=== PATIENT | male | born 1990 ===

== ENCOUNTER 2024-03-28 12:11 | Inpatient (IN) | payer SELFPAY ==
[2024-03-28 13:23] LABS: Anisocytosis Slight; Basophils % (A) 0 %; Eosinophils # (A) 0.1 k/uL (0-0.7); Eosinophils % (A) 1 %; HCT 29.3 % (39.0-53.0); HGB 9.5 gm/dL (13.0-17.5); Lymphocytes # (A) 0.5 k/uL (1.0-4.8); Lymphocytes % (A) 5 %; MCH 26.5 pg (25.0-35.0); MCHC 32.2 g/dL (31.0-37.0); MCV 82.1 fL (80.0-100.0); Mean Platelet Volume 9.4; Microcytosis Slight; Monocytes # (A) 0.9 k/uL (0-1.0); Monocytes % (A) 10 %; Neutrophils % (A) 82 %; Platelet Count 229 k/uL (150-450); RBC 3.57 m/uL (4.30-5.90); RDW 18.3 % (11.5-15.5); WBC 9.7 k/uL (3.8-10.6)
[2024-03-28 13:28] LABS: Glucose,Whole Blood 113 mg/dL (70-110)
--- NOTE | 2024-03-28 13:34 | ED ---
Altered Mental Status HPI - General Chief Complaint: Altered Mental Status Stated Complaint: Detox Time Seen by Provider: 03/28/24 12:40 Source: EMS, RN notes reviewed, old records reviewed Mode of arrival: EMS - History of Present Illness Initial Comments: This is a 34-year-old male to the ER today. He presents today for evaluation regards to altered mental status patient is a poor historian secondary to both clinical condition and language barrier, even with dewaterer operator at bedside here during history of present illness patient is unable to communicate effectively. Patient is brought in from incarceration with and acting appropriate not acting appropriately some noted diaphoresis MD Complaint: altered mental status, confusion, weakness -: days(s) Severity: moderate Consistency of Symptoms: getting worse Context: alcohol abuse, drug abuse Associated Symptoms: denies other symptoms Treatments Prior to Arrival: other pre-hospital medication (0) - Related Data Previous Rx's Medication Instructions Recorded Folic Acid 1 mg PO DAILY #30 tab 04/01/24 Lactulose [Cephulac] 20 gm PO TID #1000 ml 04/01/24 Multivitamins, Thera [Multivitamin 1 each PO DAILY #30 tab 04/01/24 (formulary)] Thiamine [Vitamin B-1] 100 mg PO DAILY #30 tab 04/01/24 Allergies Allergy/AdvReac Type Severity Reaction Status Date / Time No Known Allergies Allergy Verified 03/28/24 15:56 Review of Systems ROS Statement: Those systems with pertinent positive or pertinent negative responses have been documented in the HPI. ROS Other: All systems not noted in ROS Statement are negative. Past Medical History Past Medical History: No Reported History History of Any Multi-Drug Resistant Organisms: Unobtainable Past Surgical History: No Surgical Hx Reported Past Psychological History: Unable to Obtain Smoking Status: Unknown if ever smoked Past Alcohol Use History: Abuse Past Drug Use History: Methamphetamine, Opiates General Exam Limitations: altered mental status, physical limitation General appearance: alert, in no apparent distress, anxious, lethargic Head exam: Present: atraumatic, normocephalic, normal inspection Eye exam: Present: normal appearance, PERRL, EOMI. Absent: scleral icterus, conjunctival injection, periorbital swelling ENT exam: Present: normal exam, mucous membranes moist Neck exam: Present: normal inspection. Absent: tenderness, meningismus, lymphadenopathy Respiratory exam: Present: normal lung sounds bilaterally. Absent: respiratory distress, wheezes, rales, rhonchi, stridor Cardiovascular Exam: Present: regular rate, normal rhythm, normal heart sounds. Absent: systolic murmur, diastolic murmur, rubs, gallop, clicks GI/Abdominal exam: Present: soft, normal bowel sounds. Absent: distended, tenderness, guarding, rebound, rigid Extremities exam: Present: normal inspection, full ROM, normal capillary refill. Absent: tenderness, pedal edema, joint swelling, calf tenderness Back exam: Present: normal inspection Neurological exam: Present: alert, oriented X3, CN II-XII intact Psychiatric exam: Present: normal affect, normal mood Skin exam: Present: warm, dry, intact, normal color. Absent: rash Course Vital Signs 03/28/24 03/28/24 03/28/24 12:15 13:31 16:07 Temperature 98.3 F Pulse Rate 93 74 78 Respiratory 16 16 18 Rate Blood Pressure 127/73 125/83 134/86 O2 Sat by Pulse 98 98 99 Oximetry 03/28/24 03/28/24 03/29/24 18:05 20:45 01:43 Temperature Pulse Rate 73 58 L 70 Respiratory 16 17 19 Rate Blood Pressure 110/70 111/76 122/65 O2 Sat by Pulse 98 100 99 Oximetry 03/29/24 03/29/24 03/29/24 10:00 11:59 14:00 Temperature Pulse Rate 76 62 66 Respiratory 18 18 18 Rate Blood Pressure 126/70 130/73 128/70 O2 Sat by Pulse 99 100 99 Oximetry 03/29/24 03/29/24 03/29/24 16:00 18:51 23:35 Temperature Pulse Rate 68 68 66 Respiratory 18 18 18 Rate Blood Pressure 134/70 130/76 126/75 O2 Sat by Pulse 99 99 99 Oximetry 03/30/24 03:50 Temperature Pulse Rate 86 Respiratory 18 Rate Blood Pressure 137/87 O2 Sat by Pulse 100 Oximetry - Reevaluation(s) Reevaluation #1: 03/28/24 14:16 Medical records reviewed Reevaluation #2: 03/28/24 14:16 Patient symptoms unchanged Reevaluation #3: 03/28/24 14:16 Patient informed of results and questions answered Reevaluation #4: Was pt. sent in by a medical professional or institution (, PA, CLUTCH INSPECTOR, urgent care, hospital, or correction...) When possible be specific @ -no Did you speak to anyone other than the patient for history (EMS, parent, family, police, friend...)? What history was obtained from this source @ -no Did you review nursing and triage notes (agree or disagree)? Why? @ -agree Are old charts reviewed (outside hosp., previous admission, EMS record, old EKG, old radiological studies, urgent care reports/EKG's, correction records)? Report findings @ -yes Differential Diagnosis (chest pain, altered mental status, abdominal pain women, abdominal pain men, vaginal bleeding, weakness, fever, dyspnea, syncope, headache, dizziness, GI bleed, back pain, seizure, CVA, palpatations, mental health, musculoskeletal)? @ -prior EKG interpreted by me (3pts min.). @ -yes X-rays interpreted by me (1pt min.). @ -no CT interpreted by me (1pt min.). @ -no U/S interpreted by me (1pt. min.). @ -no What testing was considered but not performed or refused? (CT, X-rays, U/S, labs)? Why? @ -none What meds were considered but not given or refused? Why? @ -none Did you discuss the management of the patient with other professionals (professionals i.e. , PA, CLUTCH INSPECTOR, lab, RT, psych nurse, social work nurse, horse riding coach or instructor, teacher, engineering officer, rn field case manager)? Give summary @ -no Was smoking cessation discussed for >3mins.? @ -no Were there social determinants of health that impacted care today? How? (Homelessness, low income, unemployed, alcoholism, drug addiction, transportation, low edu. Level, literacy, decrease access to med. care, half-way, rehab)? @ -none Was there de-escalation of care discussed even if they declined (Discuss DNR or withdrawal of care, Hospice)? DNR status @ -no What co-morbidities impacted this encounter? (DM, HTN, Smoking, COPD, CAD, Cancer, CVA, ARF, Chemo, Hep., AIDS, mental health diagnosis, sleep apnea, morbid obesity)? @ -none Was patient admitted / discharged? Hospital course, mention meds given and route, prescriptions, significant lab abnormalities, going to OR and other pertinent info. @ - 34 male with persistent altered mental status, continues to be unable to participate or does not participate in evaluation, patient will be admitted for psychiatry as well as possible neurological evaluation in regards to clinical condition Admitted Was critical care preformed (if so, how long)? @ -no Undiagnosed new problem with uncertain prognosis? @ -no Drug Therapy requiring intensive monitoring for toxicity (Heparin, Nitro, Insulin, Cardizem)? @ -no Were any procedures done? @ -no Diagnosis/symptom? @ -depression suicidal altered mental state Acute, or Chronic, or Acute on Chronic? @ -Acute Uncomplicated (without systemic symptoms) or Complicated (systemic symptoms)? @ -Complicated Side effects of treatment? @ -no Exacerbation, Progression, or Severe Exacerbation? @ -exacerbation Poses a threat to life or bodily function? How? (Chest pain, [place], [place], pneumonia, PE, COPD, DKA, ARF, appy, cholecystitis, CVA, Diverticulitis, Homicidal, Suicidal, threat to staff... and all critical care pts) @ -yes suicidal and altered mental status Reevaluation #5: Differential Altered Mental Status: Hypoglycemia, DKA, hypercapnia, ETOH, overdose, CO poisoning, trauma, myxedema coma, HTN encephalopathy, infection, encephalitis, psychosis, intercranial hemorrhage, hepatic encephalopathy, meningitis, CVA, this is not meant to be an all-inclusive list - Consultations Consultation #1: Spoke with admitting physicians who agreed to admit this patient Medical Decision Making - Medical Decision Making 34 male with persistent altered mental status, continues to be unable to participate or does not participate in evaluation, patient will be admitted for psychiatry as well as possible neurological evaluation in regards to clinical condition - Lab Data Result diagrams: 04/01/24 08:52 04/01/24 08:52 Lab Results 03/28/24 03/28/24 03/28/24 Range/Units 13:14 13:14 13:14 WBC 9.7 (3.8-10.6) k/uL RBC 3.57 L (4.30-5.90) m/uL Hgb 9.5 L (13.0-17.5) gm/dL Hct 29.3 L (39.0-53.0) % MCV 82.1 (80.0-100.0) fL MCH 26.5 (25.0-35.0) pg MCHC 32.2 (31.0-37.0) g/dL RDW 18.3 H (11.5-15.5) % Plt Count 229 (150-450) k/uL MPV 9.4 Neutrophils % 82 % Lymphocytes % 5 % Monocytes % 10 % Eosinophils % 1 % Basophils % 0 % Neutrophils # 8.0 H (1.3-7.7) k/uL Lymphocytes # 0.5 L (1.0-4.8) k/uL Monocytes # 0.9 (0-1.0) k/uL Eosinophils # 0.1 (0-0.7) k/uL Basophils # 0.0 (0-0.2) k/uL Anisocytosis Slight Microcytosis Slight PT 12.7 H (10.0-12.5) sec INR 1.2 H (<1.2) APTT 23.8 (22.0-30.0) sec POC Glucose (mg/dL) (70-110) mg/dL POC Glu Radiology Physician ID Phosphorus (2.5-4.5) mg/dL Magnesium (1.6-2.3) mg/dL Ammonia (<30) umol/L Troponin I (0.000-0.034) ng/mL Lipase (23-300) U/L Urine Opiates Screen Not Detected (NotDetected) Ur Oxycodone Screen Not Detected (NotDetected) Urine Methadone Screen Not Detected (NotDetected) Ur Barbiturates Screen Not Detected (NotDetected) U Tricyclic Antidepress Not Detected (NotDetected) Ur Phencyclidine Scrn Not Detected (NotDetected) Ur Amphetamines Screen Not Detected (NotDetected) U Methamphetamines Scrn Not Detected (NotDetected) U Benzodiazepines Scrn Not Detected (NotDetected) Urine Cocaine Screen Not Detected (NotDetected) U Marijuana (THC) Screen Detected H (NotDetected) Serum Alcohol mg/dL 03/28/24 03/28/24 03/28/24 Range/Units 13:14 13:14 13:14 WBC (3.8-10.6) k/uL RBC (4.30-5.90) m/uL Hgb (13.0-17.5) gm/dL Hct (39.0-53.0) % MCV (80.0-100.0) fL MCH (25.0-35.0) pg MCHC (31.0-37.0) g/dL RDW (11.5-15.5) % Plt Count (150-450) k/uL MPV Neutrophils % % Lymphocytes % % Monocytes % % Eosinophils % % Basophils % % Neutrophils # (1.3-7.7) k/uL Lymphocytes # (1.0-4.8) k/uL Monocytes # (0-1.0) k/uL Eosinophils # (0-0.7) k/uL Basophils # (0-0.2) k/uL Anisocytosis Microcytosis PT (10.0-12.5) sec INR (<1.2) APTT (22.0-30.0) sec POC Glucose (mg/dL) (70-110) mg/dL POC Glu Radiology Physician ID Phosphorus 3.8 (2.5-4.5) mg/dL Magnesium 2.1 (1.6-2.3) mg/dL Ammonia 29 (<30) umol/L Troponin I 0.016 (0.000-0.034) ng/mL Lipase 135 (23-300) U/L Urine Opiates Screen (NotDetected) Ur Oxycodone Screen (NotDetected) Urine Methadone Screen (NotDetected) Ur Barbiturates Screen (NotDetected) U Tricyclic Antidepress (NotDetected) Ur Phencyclidine Scrn (NotDetected) Ur Amphetamines Screen (NotDetected) U Methamphetamines Scrn (NotDetected) U Benzodiazepines Scrn (NotDetected) Urine Cocaine Screen (NotDetected) U Marijuana (THC) Screen (NotDetected) Serum Alcohol <10 mg/dL 03/28/24 Range/Units 13:27 WBC (3.8-10.6) k/uL RBC (4.30-5.90) m/uL Hgb (13.0-17.5) gm/dL Hct (39.0-53.0) % MCV (80.0-100.0) fL MCH (25.0-35.0) pg MCHC (31.0-37.0) g/dL RDW (11.5-15.5) % Plt Count (150-450) k/uL MPV Neutrophils % % Lymphocytes % % Monocytes % % Eosinophils % % Basophils % % Neutrophils # (1.3-7.7) k/uL Lymphocytes # (1.0-4.8) k/uL Monocytes # (0-1.0) k/uL Eosinophils # (0-0.7) k/uL Basophils # (0-0.2) k/uL Anisocytosis Microcytosis PT (10.0-12.5) sec INR (<1.2) APTT (22.0-30.0) sec POC Glucose (mg/dL) 113 H (70-110) mg/dL POC Glu Radiology Physician ID Ronit Batres Phosphorus (2.5-4.5) mg/dL Magnesium (1.6-2.3) mg/dL Ammonia (<30) umol/L Troponin I (0.000-0.034) ng/mL Lipase (23-300) U/L Urine Opiates Screen (NotDetected) Ur Oxycodone Screen (NotDetected) Urine Methadone Screen (NotDetected) Ur Barbiturates Screen (NotDetected) U Tricyclic Antidepress (NotDetected) Ur Phencyclidine Scrn (NotDetected) Ur Amphetamines Screen (NotDetected) U Methamphetamines Scrn (NotDetected) U Benzodiazepines Scrn (NotDetected) Urine Cocaine Screen (NotDetected) U Marijuana (THC) Screen (NotDetected) Serum Alcohol mg/dL - EKG Data -: EKG Interpreted by Me (EKG is sinus 65 ND 172 QRS 98 QTc 435) Disposition Clinical Impression: Altered mental status, Delirium due to general medical condition Disposition: ADMITTED IP TO THIS HOSP Condition: Fair Is patient prescribed a controlled substance at d/c from ED?: No Time of Disposition: 16:30
[2024-03-28 13:35] LABS: Alcohol <10 mg/dL; Lipase 135 U/L (23-300); Magnesium 2.1 mg/dL (1.6-2.3); Phosphorus 3.8 mg/dL (2.5-4.5)
[2024-03-28 13:37] LABS: INR 1.2 (<1.2); Partial Thromboplastin Time 23.8 sec (22.0-30.0); Prothrombin Time 12.7 sec (10.0-12.5)
[2024-03-28 15:23] LABS: Amphetamine Screen,Urine Not Detected (NotDetected); Barbiturate Screen,Urine Not Detected (NotDetected); Benzodiazepines Screen,Urine Not Detected (NotDetected); Cocaine Screen,Urine Not Detected (NotDetected); Methadone Screen, Urine Not Detected (NotDetected); Opiate Screen,Urine Not Detected (NotDetected); Oxycodone Screen, Urine Not Detected (NotDetected); Phencyclidine Screen,Urine Not Detected (NotDetected); Tricyclic Antidepressant,Urine Not Detected (NotDetected); Urn Cannabinoid Scrn Detected (NotDetected)
[2024-03-28] MEDS ORDERED: NALOXONE 0.4 MG/ML 1 ML VIAL IV PRN (16:33)
[2024-03-28] MEDS ORDERED: ONDANSETRON 4 MG/2 ML VIAL IVP PRN (16:33)
[2024-03-28] MEDS: SODIUM CHLORIDE 0.9% 1,000 ML IV SCH (18:04)
--- NOTE | 2024-03-28 22:28 | CT ---
EXAMINATION TYPE: CT brain wo con DATE OF EXAM: 03/28/2024 COMPARISON: None INDICATION: ams DLP: 1095.4 mGycm, Automated exposure control for dose reduction was used. CONTRAST: None CT of the brain is performed utilizing 3 mm thick sections through the posterior fossa and 3 mm thick sections through the remaining calvarium. Study is performed within 24 hours of arrival to the hosp ital. No abnormal hyperdensity is present to suggest an acute intracranial hemorrhage. No mass lesion is evident. No acute infarcts are evident. Ventricles and sulci are appropriate for the patient age. Paranasal sinuses and mastoid air cells within the [id number] are clear. IMPRESSION: 1. No acute intracranial process. Follow-up MRI can be performed as clinically indicated
--- NOTE | 2024-03-29 01:39 | P.HPIM ---
History of Present Illness H&P Date: 03/28/24 Chief Complaint: Altered mental status 34-year-old male no significant past medical history Private Household Worker service was utilized to communicate with patient, facilities flight check pilot name was Karlo code #[id number] [place] that [place] kids with st ones resulted in superficial ulcers in his feet legs elbow, then he adds that he remained in his wet shoes for 3 days before he came in here and that resulted in some pain in his left foot. When asked to elaborate more he added that he was working in [employer] but over the past couple days he was feeling dizzy and having trouble with walking due to pain in his feet. Eventually a stranger and found him in an unknown condition and brought him to the hospital for evaluation Patient otherwise denies any headache changes in vision chest pain trouble breathing coughing abdominal pain nausea vomiting diarrhea or constipation denies any urinary changes. When asked he does admit to history of GI bleeding described as fresh blood occasionally no associated pain. No further history is obtainable from this patient at this time Emergency department note documented that patient was brought in due to altered mental status again they noted that patient has language barrier and was not able to communicate effectively even with facilities flight check pilot service ED notes that also patient was brought in from incarceration, when I asked the patient he failed to elaborate over this fact and basically denied Patient denies tobacco smoking illicit drugs or heavy alcohol however his urine drug screen tested positive for marijuana CT of the brain no acute intracranial pathology review of systems Pertinent positives as noted in HPI. All other systems were reviewed and are negative on exam Constitutional: No acute distress, language barrier utilized facilities flight check pilot service Eyes: Anicteric sclerae, moist conjunctiva, Pupils equal round reactive to light ENMT: NC/AT Neck: Supple, no masses, or JVD No carotid bruits No thyromegaly Lungs: Clear to auscultation Clear to percussion Normal respiratory effort, no accessory muscle use Cardiovascular: Heart regular in rate and rhythm, No murmurs, gallops, or rubs No peripheral edema Abdominal: Soft Nontender, no guarding, rebound or rigidity Abdomen moving with respiration Normoactive bowel sounds Skin: Multiple superficial dried ulcers with scabbing over his foot, leg, knee, elbow Extremities: No digital cyanosis No clubbing Pedal pulses intact and symmetrical Radial pulses intact and symmetrical No calf tenderness Psychiatric: Alert and oriented to person, place and time Neuro Muscles Strength 5/5 in all 4 extremities Sensation to light touch grossly present throughout Cranial nerves II-XII grossly intact Past Medical History Past Medical History: No Reported History History of Any Multi-Drug Resistant Organisms: Unobtainable Past Surgical History: No Surgical Hx Reported Past Psychological History: Unable to Obtain Smoking Status: Unknown if ever smoked Past Alcohol Use History: Abuse Past Drug Use History: Methamphetamine, Opiates Medications and Allergies Home Medications Medication Instructions Recorded Confirmed Type No Known Home Medications 03/28/24 03/28/24 History Allergies Allergy/AdvReac Type Severity Reaction Status Date / Time No Known Allergies Allergy Verified 03/28/24 15:56 Physical Exam Vitals: Vital Signs Temp Pulse Resp BP Pulse Ox 03/28/24 20:45 58 L 17 111/76 100 03/28/24 18:05 73 16 110/70 98 03/28/24 16:07 78 18 134/86 99 03/28/24 13:31 74 16 125/83 98 03/28/24 12:15 98.3 F 93 16 127/73 98 Intake and Output 03/28/24 03/28/24 03/28/24 06:59 14:59 22:59 Other: Weight 54.431 kg Results CBC & Chem 7: 03/28/24 13:14 Labs: Abnormal Lab Results - Last 24 Hours (Table) 03/28/24 03/28/24 03/28/24 Range/Units 13:14 13:14 13:14 RBC 3.57 L (4.30-5.90) m/uL Hgb 9.5 L (13.0-17.5) gm/dL Hct 29.3 L (39.0-53.0) % RDW 18.3 H (11.5-15.5) % Neutrophils # 8.0 H (1.3-7.7) k/uL Lymphocytes # 0.5 L (1.0-4.8) k/uL PT 12.7 H (10.0-12.5) sec INR 1.2 H (<1.2) POC Glucose (mg/dL) (70-110) mg/dL U Marijuana (THC) Screen Detected H (NotDetected) 03/28/24 Range/Units 13:27 RBC (4.30-5.90) m/uL Hgb (13.0-17.5) gm/dL Hct (39.0-53.0) % RDW (11.5-15.5) % Neutrophils # (1.3-7.7) k/uL Lymphocytes # (1.0-4.8) k/uL PT (10.0-12.5) sec INR (<1.2) POC Glucose (mg/dL) 113 H (70-110) mg/dL U Marijuana (THC) Screen (NotDetected) Assessment and Plan Assessment: 34-year-old male no significant past medical history language barrier facilities flight check pilot service utilized patient does not have any specific complaints he was brought in due to altered mental status and generalized weakness I discussed case with ED doctor and accepted the admission for altered mental status for ne urologic monitoring and evaluation with anticipated length of stay less than 2 midnights Acute metabolic encephalopathy Suspected secondary to dehydration Check stat BMP Check stat lactic acid Urine looks dark at bedside CT of the brain no acute intracranial pathology Neurochecks every 2 hours Blood work overall unremarkable showing magnesium of 2.1 white count of 9.7 IV fluid hydration normal saline 1 L bolus followed by 130 cc/h Monitor urine output Anemia Hemoglobin 9.5 Patient admits to history of GI bleeding Check FOBT, if positive consider GI consultation Full code DVT prophylaxis mechanical GI prophylaxis Protonix 40 mg p.o. daily
[2024-03-29 02:03] LABS: African American GFR (CKD) >90 (>60 ml/min/1.73 sqM); Anion Gap 7 mmol/L; Blood Urea Nitrogen 19 mg/dL (9-20); Calcium 8.6 mg/dL (8.4-10.2); Carbon Dioxide 24 mmol/L (22-30); Chloride 102 mmol/L (98-107); Glucose 111 mg/dL (74-99); Non-African American GFR(CKD) >90 (>60 ml/min/1.73 sqM); Sodium 133 mmol/L (137-145)
[2024-03-29 02:10] LABS: Creatine Kinase 1390 U/L (55-170)
[2024-03-29 10:01] LABS: Anisocytosis Slight; Basophils % (A) 0 %; Eosinophils # (A) 0.1 k/uL (0-0.7); Eosinophils % (A) 1 %; HCT 28.3 % (39.0-53.0); HGB 8.5 gm/dL (13.0-17.5); Lymphocytes # (A) 0.7 k/uL (1.0-4.8); Lymphocytes % (A) 9 %; MCH 25.2 pg (25.0-35.0); MCV 84.2 fL (80.0-100.0); Monocytes # (A) 0.7 k/uL (0-1.0); Monocytes % (A) 9 %; Neutrophils # (A) 6.4 k/uL (1.3-7.7); Neutrophils % (A) 78 %; Platelet Count 216 k/uL (150-450); RBC 3.37 m/uL (4.30-5.90); RDW 18.5 % (11.5-15.5); WBC 8.2 k/uL (3.8-10.6)
[2024-03-29 10:09] LABS: ALT 80 U/L (4-49); AST 188 U/L (17-59); African American GFR (CKD) >90 (>60 ml/min/1.73 sqM); Albumin 3.5 g/dL (3.5-5.0); Albumin/Globulin Ratio 0.9; Alkaline Phosphatase 379 U/L (38-126); Anion Gap 7 mmol/L; Blood Urea Nitrogen 14 mg/dL (9-20); Calcium 8.9 mg/dL (8.4-10.2); Carbon Dioxide 26 mmol/L (22-30); Chloride 100 mmol/L (98-107); Globulin 3.7 g/dL; Glucose 126 mg/dL (74-99); Magnesium 1.7 mg/dL (1.6-2.3); Non-African American GFR(CKD) >90 (>60 ml/min/1.73 sqM); Sodium 133 mmol/L (137-145); Total Bilirubin 1.4 mg/dL (0.2-1.3); Total Protein 7.2 g/dL (6.3-8.2)
[2024-03-29] MEDS: MAGNESIUM SULFATE-D5W PMX 1 GM in DEXTROSE/WATER 1 100ML.BAG IVPB SCH (11:54)
[2024-03-29] MEDS: POTASSIUM CHLORIDE ER 20 MEQ TAB.ER PO STA (11:56)
[2024-03-29] MEDS: SODIUM CHLORIDE 0.9% 1,000 ML IV ONE (11:57)
[2024-03-29] MEDS ORDERED: LORazepam 2 MG/ML INJ IV PRN ×2 (15:32)
[2024-03-29] MEDS ORDERED: LORazepam 0.5 MG TAB PO PRN (15:32)
[2024-03-29] MEDS ORDERED: LORazepam 1 MG TAB PO PRN (15:32)
[2024-03-29] MEDS: THIAMINE 100 MG/ML 2 ML VIAL IM STA (15:49)
[2024-03-29] MEDS: FOLIC ACID 1 MG TAB PO SCH (15:49)
[2024-03-29] MEDS: MULTIVITAMINS, THERA 1 EACH TAB PO SCH (15:49)
--- NOTE | 2024-03-29 15:50 | P.PN ---
Subjective Progress Note Date: 03/29/24 Hospital course: Patient is a 34-year-old male with no reported past medical history. He presented to the emergency department on 03/28/2024 with a chief complaint of altered mental status. Patient presented to the ER via EMS from group home where patient was reported to be found with altered mental status and was noted to be hallucinating and stomping on the ground trying to kill bugs and not making any sense. EMS was called secondary to concerns that patient was undergoing withdrawal and patient was transferred to the emergency department for evaluation. Vital signs upon arrival show blood pressure 127/73, heart rate 93, respiratory rate 16, temp 98.3 F, and SpO2 of 98% on room air. EKG was completed showing normal sinus rhythm at 65 bpm with no significant T wave or ST abnormalities showing no signs of acute ischemia upon personal review and interpretation. CT head negative for acute intracranial process. Labs completed and reviewed. CBC showing normocytic anemia with hemoglobin of 9.5. Coagulation profile revealing elevated INR of 1.2. Troponin 0.016. Ammonia 29. Magnesium 2.1. Lipase 135. Urine drug screen positive for marijuana and serum alcohol level less than 10. Creatinine kinase was elevated at 1390. Patient was admitted under services at this time. Physical exam: Patient seen and fully evaluated at bedside. Virtual dietary aid was used during assessment (Zoran [id number]). Patient reported he was walking and kids were throwing rocks at him and an ambulance was passing by and pulled over to help him and brought him to the hospital. Patient remains confused does not remember being in group home and admits to alcohol use but nonspecific with amount per day. Patient denies any other drug use and denies having any pain or complaints at this time including headache, lightheadedness, dizziness, chest pain, palpitations, shortness of breath, or experiencing any numbness/tingling/weakness in his extremities. Vital signs reviewed and stable. General: Nontoxic, no distress and appears stated age. Derm: Skin warm and dry, normal coloration for ethnicity. Patient with bruises to bilateral knees and shins. Small abrasions lower extremities and left elbow. Head: Atraumatic, normocephalic and symmetric. Eyes: EOMs intact, no lid lag, and anicteric sclera Mouth: no lip lesions, mucus membranes moist Cardiovascular: regular rate and rhythm with normal S1S2, no murmur, positive posterior tibial pulses bilaterally, and cap refill < 2 seconds. Lungs: Respirations even, regular, and unlabored on room air. Lungs CTA bilaterally, no rhonchi, no rales, no wheezing, and no accessory muscle usage. Abdominal: soft, nontender to palpation, no guarding, no appreciable organomegaly Ext: ROM intact. No gross muscle atrophy, no edema, no contractures Neuro: Speech clear, face symmetrical and CN II-XII grossly intact with no noted focal neuro deficits Psych: Alert and oriented to person and place only, confused to time and situation. Assessment and Plan of Care: Rhabdomyolysis Metabolic encephalopathy, suspect alcohol withdraw Transaminitis with hyperbilirubinemia, suspect alcohol abuse Elevated INR Hyponatremia Hypokalemia Hypomagnesemia -Order placed for monitoring of CIWA scores and patient to be medicated with Ativan 0.5 mg every 4 hours as needed for CIWA score of 4-5, Ativan 1 mg every 4 hours for CIWA score of 6-7, Ativan 2 mg every 3 hours CIWA score of 8-9, and Ativan 2 mg every 2 hours forr CIWA score of 10 or greater. -Continuous IV hydration with 0.9% NS at 130 mL/hr. -Thiamine 100 mg daily, Multivitamin daily, and Folate 1 mg daily -Seizure, fall, and elopement precautions in place. -Neurochecks every 4 hours. -Continued close monitoring of electrolytes and replace as needed. -Telemetry monitoring. Data and imaging reviewed: Morning labs reviewed. CBC showing normocytic anemia with a hemoglobin of 8.5. BMP showing hyponatremia with sodium of 133 and hypokalemia with potassium of 3.0. Blood glucose 126. Magnesium slightly low at 1.7. Liver profile showing elevated total bili of 1.4, AST of 188, ALT of 80, and alkaline phosphatase of 379. Creatinine kinase is 1043. Vital signs reviewed. Blood pressure 126/70, heart rate 76, respiratory rate 18, and SpO2 of 99% on room air. Virtual dietary aid was used throughout assessment (Zoran [id number]). CODE STATUS: Full code DVT prophylaxis: SCDs Anticipated discharge date: Pending clinical course Anticipated discharge place: Pending clinical course Patient was seen independently by Nurse Pracitioner. This document was prepared using [employer] dictation software. Please allow for errors in dental equipment technician, while rare they do occur. I reviewed the documentation as provided by the RE above, who is the original author of this note. I agree with the documented assessment and plan, with the following changes: none Objective - Vital Signs Vital signs: Vital Signs Temp 98.3 F 03/28/24 12:15 Pulse 70 03/29/24 01:43 Resp 19 03/29/24 01:43 BP 122/65 03/29/24 01:43 Pulse Ox 99 03/29/24 01:43 FiO2 Intake & Output 03/28/24 03/29/24 03/29/24 18:59 06:59 18:59 Weight 54.431 kg - Labs CBC & Chem 7: 03/29/24 08:20 03/29/24 08:20 Labs: Abnormal Lab Results - Last 24 Hours (Table) 03/28/24 03/28/24 03/28/24 Range/Units 13:14 13:14 13:14 RBC 3.57 L (4.30-5.90) m/uL Hgb 9.5 L (13.0-17.5) gm/dL Hct 29.3 L (39.0-53.0) % RDW 18.3 H (11.5-15.5) % Neutrophils # 8.0 H (1.3-7.7) k/uL Lymphocytes # 0.5 L (1.0-4.8) k/uL PT 12.7 H (10.0-12.5) sec INR 1.2 H (<1.2) Sodium (137-145) mmol/L Potassium (3.5-5.1) mmol/L Creatinine (0.66-1.25) mg/dL Glucose (74-99) mg/dL POC Glucose (mg/dL) (70-110) mg/dL Creatine Kinase (55-170) U/L U Marijuana (THC) Screen Detected H (NotDetected) 03/28/24 03/29/24 Range/Units 13:27 01:39 RBC (4.30-5.90) m/uL Hgb (13.0-17.5) gm/dL Hct (39.0-53.0) % RDW (11.5-15.5) % Neutrophils # (1.3-7.7) k/uL Lymphocytes # (1.0-4.8) k/uL PT (10.0-12.5) sec INR (<1.2) Sodium 133 L (137-145) mmol/L Potassium 3.0 L (3.5-5.1) mmol/L Creatinine 0.57 L (0.66-1.25) mg/dL Glucose 111 H (74-99) mg/dL POC Glucose (mg/dL) 113 H (70-110) mg/dL Creatine Kinase 1390 H* (55-170) U/L U Marijuana (THC) Screen (NotDetected)
[2024-03-30 08:30] LABS: HCT 25.3 % (39.6-50.0); HGB 8.1 g/dL (13.0-17.0); MCH 26.9 pg (27.0-32.0); MCV 84.1 FL (80.0-97.0); Mean Platelet Volume 10.4 FL (9.5-12.2); NRBC Per 100 WBC 0 X 10*3/uL (0.00-0.01); Platelet Count 199 X 10*3/uL (140-440); RBC 3.01 X 10*6/uL (4.40-5.60); RDW 19.7 % (11.5-14.5); WBC 7.26 X 10*3/uL (4.50-10.00)
[2024-03-30] MEDS ORDERED: ENOXAPARIN 40 MG/0.4 ML SYRINGE SQ SCH (09:00)
[2024-03-30 09:04] LABS: ALT 66 U/L (10-49); AST 114 U/L (14-35); Albumin 3.6 g/dL (3.8-4.9); Albumin/Globulin Ratio 1.29 Ratio (1.60-3.17); Alkaline Phosphatase 337 U/L (41-126); Blood Urea Nitrogen 7.8 mg/dL (9.0-27.0); Calcium 8.6 mg/dL (8.7-10.3); Carbon Dioxide 22.6 mmol/L (21.6-31.8); Chloride 104 mmol/L (96-109); Globulin 2.8 g/dL (1.6-3.3); Glucose 105 mg/dL (70-110); Magnesium 1.7 mg/dL (1.5-2.4); Potassium 3.3 mmol/L (3.5-5.5); Sodium 137 mmol/L (135-145); Total Bilirubin 0.8 mg/dL (0.3-1.2); Total Protein 6.4 g/dL (6.2-8.2)
[2024-03-30] MEDS: LACTULOSE 20 GM/30 ML CUP PO SCH (09:12)
[2024-03-30] MEDS: THIAMINE 100 MG TAB PO SCH (09:13)
[2024-03-30] MEDS: LORazepam 2 MG/ML INJ IV PRN (10:18)
--- NOTE | 2024-03-30 13:25 | P.PN ---
Subjective Progress Note Date: 03/30/24 Hospital course: Patient is a 34-year-old male with no reported past medical history. He presented to the emergency department on 03/28/2024 with a chief complaint of altered mental status. Patient presented [facility] the ER [facility] EMS from [facility] where patient was reported to be found with altered mental status and was noted to be hallucinating and stomping on the ground trying to kill bugs and not making any sense. EMS was called secondary to concerns that patient was undergoing withdrawal and patient was transferred to the emergency department for evaluation. Vital signs upon arrival show blood pressure 127/73, heart rate 93, respiratory rate 16, temp 98.3 F, and SpO2 of 98% on room air. EKG was completed showing normal sinus rhythm at 65 bpm with no significant T wave or ST abnormalities showing no signs of acute ischemia upon personal review and interpretation. CT head negative for acute intracranial process. Labs completed and reviewed. CBC showing normocytic anemia with hemoglobin of 9.5. Coagulation profile revealing elevated INR of 1.2. Troponin 0.016. Ammonia 29. Magnesium 2.1. Lipase 135. Urine drug screen positive for marijuana and serum alcohol level less than 10. Creatinine kinase was elevated at 1390. Patient was admitted under our services at this time. Physical exam: Patient seen and fully evaluated at bedside. Virtual physical therapist center manager was used t hroughout assessment (Hublished [id number]). Patient used this morning has been itching his upper extremities profusely secondary to reports of bugs and per translator and interpreter states that he is seeing snakes coming up out of the ground. Patient is alert to person and place but confused to time and situation. Patient unable to state the year. He does admit to drinking a lot of alcohol but again would not be specific with the amount. Vital signs reviewed and stable. General: Nontoxic, no distress and appears stated age. Derm: Skin warm and dry, normal coloration for ethnicity. Patient with bruises to bilateral knees and shins. Small abrasions lower extremities and left elbow. Head: Atraumatic, normocephalic and symmetric. Eyes: EOMs intact, no lid lag, and anicteric sclera Mouth: no lip lesions, mucus membranes moist Cardiovascular: regular rate and rhythm with normal S1S2, no murmur, positive posterior tibial pulses bilaterally, and cap refill < 2 seconds. Lungs: Respirations even, regular, and unlabored on room air. Lungs CTA bilaterally, no rhonchi, no rales, no wheezing, and no accessory muscle usage. Abdominal: soft, nontender to palpation, no guarding, no appreciable org anomegaly Ext: ROM intact. No gross muscle atrophy, no edema, no contractures Neuro: Speech clear, face symmetrical and CN II-XII grossly intact with no noted focal neuro deficits Psych: Alert and oriented to person and place only, confused to time and situation. Reporting visual and tactile hallucinations. Assessment and Plan of Care: Hepatic encephalopathy Rhabdomyolysis Elevated INR Hypokalemia Hypomagnesemia Transaminitis with hyperbilirubinemia, likely secondary to daily alcohol abuse and underlying alcoholic cirrhosis. Liver enzymes improving. -Continue monitoring of CIWA scores and patient to be medicated with Ativan 0.5 mg every 4 hours as needed for CIWA score of 4-5, Ativan 1 mg every 4 hours for CIWA score of 6-7, Ativan 2 mg every 3 hours CIWA score of 8-9, and Ativan 2 mg every 2 hours forr CIWA score of 10 or greater. Discussed with RN that translator and interpreter is necessary to use during CIWA scoring. -Will continue with gentle IV fluid hydration with 0.9% NS at 75 mL/hr. -Thiamine 100 mg daily, Multivitamin daily, and Folate 1 mg daily -Seizure, fall, and elopement precautions in place. -Neurochecks every 4 hours. -Continued close monitoring of electrolytes and replace as needed. -Telemetry monitoring. Hyponatremia. Resolved with IV fluid hydration. Data and imaging reviewed: -Morning labs reviewed. CBC showing stable normocytic anemia with hemoglobin of 8.1. BMP showing resolution of hyponatremia with sodium levels of 137 and continued but improved hypokalemia with potassium of 3.3. Magnesium remains slightly low at 1.7. Liver profile showing resolution of hyperbilirubinemia with bilirubin decreasing from 1.4 down to 0.8 this morning and transaminitis improving with AST of 114, ALT of 66, and alkaline phosphatase of 337. Ammonia was slightly elevated at 44. Patient started on lactulose 20 mg 3 times daily. -Vital signs reviewed. Blood pressure 125/77, heart rate 71, respiratory rate 16, temp 98.9 F, and SpO2 of 100% on room air. Virtual physical therapist center manager was used throughout assessment (Hublished [id number]).. CODE STATUS: Full code DVT prophylaxis: SCDs Anticipated discharge date: Pending clinical course Anticipated discharge place: Pending clinical course Patient was seen independently by Nurse Pracitioner. This document was prepared using [employer] dictation software. Please allow for errors in ornamental iron worker apprentice, while rare they do occur. Charles Law HYPOID GEAR GENERATOR rendered care for this patient independently, reviewed the findings and plan as documented in the note above. I did not physically speak with or examine the patient on this date. Objective - Vital Signs Vital signs: Vital Signs Temp 98.3 F 03/28/24 12:15 Pulse 86 03/30/24 03:50 Resp 18 03/30/24 03:50 BP 137/87 03/30/24 03:50 Pulse Ox 100 03/30/24 03:50 FiO2 Intake & Output 03/29/24 03/30/24 03/30/24 18:59 06:59 18:59 Output Total 1700 290 Balance -1700 -290 Output: Urine 1700 290 - Labs CBC & Chem 7: 03/30/24 03:21 03/30/24 03:21 Labs: Abnormal Lab Results - Last 24 Hours (Table) 03/29/24 03/29/24 03/29/24 Range/Units 08:20 08:20 08:20 RBC 3.37 L (4.30-5.90) m/uL Hgb 8.5 L (13.0-17.5) gm/dL Hct 28.3 L (39.0-53.0) % MCHC 30.0 L (31.0-37.0) g/dL RDW 18.5 H (11.5-15.5) % Lymphocytes # 0.7 L (1.0-4.8) k/uL Sodium 133 L (137-145) mmol/L Potassium 3.0 L (3.5-5.1) mmol/L Creatinine 0.48 L (0.66-1.25) mg/dL Glucose 126 H (74-99) mg/dL Total Bilirubin 1.4 H (0.2-1.3) mg/dL AST 188 H (17-59) U/L ALT 80 H (4-49) U/L Alkaline Phosphatase 379 H (38-126) U/L Ammonia (<30) umol/L Creatine Kinase 1043 H* (55-170) U/L 03/30/24 Range/Units 03:21 RBC (4.30-5.90) m/uL Hgb (13.0-17.5) gm/dL Hct (39.0-53.0) % MCHC (31.0-37.0) g/dL RDW (11.5-15.5) % Lymphocytes # (1.0-4.8) k/uL Sodium (137-145) mmol/L Potassium (3.5-5.1) mmol/L Creatinine (0.66-1.25) mg/dL Glucose (74-99) mg/dL Total Bilirubin (0.2-1.3) mg/dL AST (17-59) U/L ALT (4-49) U/L Alkaline Phosphatase (38-126) U/L Ammonia 44 H (<30) umol/L Creatine Kinase (55-170) U/L
[2024-03-30] MEDS: POTASSIUM CHLORIDE ER 20 MEQ TAB.ER PO STA (13:28)
[2024-03-30] MEDS: MAGNESIUM SULFATE-D5W PMX 1 GM in DEXTROSE/WATER 1 100ML.BAG IVPB SCH (13:28)
[2024-03-30] MEDS: SODIUM CHLORIDE 0.9% 1,000 ML IV SCH (13:29)
--- NOTE | 2024-03-31 11:40 | CDI ---
Documentation Clarification Form Date: 03/31/2024 11:16:58 AM From: Anusha Dumont Phone: [phone] Admit Date: 03/28/2024 04:34:00 PM Patient Name: Dean Hassan Visit Number: [id number] Discharge Date: ATTENTION: The Clinical Documentation Specialists (CDI) and [facility] Coding Staff appreciate your assistance in clarifying documentation. Please respond to the clarification below the line at the bottom and electronically sign. The CDI & [facility] Coding staff will review the response and follow-up if needed. Please note: Queries are made part of the Legal Health Record. If you have any questions, please contact the author of this message via ITS. Dr. Charles Law Rhabdomyolysis is documented 03/29 & 03/30, Medicine notes. Additional clarification regarding the type of rhabdomyolysis is requested. History/Risk Factors: 34-year-old male presents to the ED from [facility] via EMS. The patient was reported to be found with altered mental status, hallucinating and stomping the ground trying to kill bugs and not making sense. EMS called secondary to concerns of withdrawal. Medical history: suspect alcohol abuse. Medicine note, 03/29. Clinical Indicators: 03/29, Creatine Kinase 1390; 1043 03/29, LABS: THC detected, Serum Alcohol <1, Creatinine 0.57, na 133, K 3.0, AST 1.4, ALT 188, ALK Phos 379, mag 1.7 Treatment: 03/29 0.9NS 1L IV x 1; 03/28 03/30 0.9NS 130cc/hr IV; 03/30 03/31 0.9NS 75cc/hr IV; 03/29 Magnesium Sulfate Dextrose IVPB Q1H IV x 2 bags; 03/30 Magnesium Sulfate Dextrose IVPB IV x 2 bags. Please clarify the type of rhabdomyolysis, if known: [ ] Traumatic rhabdomyolysis due to (please specify) [X ] Non traumatic rhabdomyolysis due to (please specify) ___dehydration from alcohol abuse ___ [ ] Other, please specify [ ] Unable to Determine (Template Last Revised: January 2021) MTDD
[2024-03-31 11:51] LABS: Anisocytosis Slight; HCT 28.6 % (39.0-53.0); HGB 8.8 gm/dL (13.0-17.5); MCHC 30.6 g/dL (31.0-37.0); MCV 85.1 fL (80.0-100.0); Mean Platelet Volume 9.4; Platelet Count 235 k/uL (150-450); RBC 3.37 m/uL (4.30-5.90); RDW 18.8 % (11.5-15.5); WBC 9.2 k/uL (3.8-10.6)
[2024-03-31 12:20] LABS: ALT 57 U/L (4-49); AST 77 U/L (17-59); African American GFR (CKD) >90 (>60 ml/min/1.73 sqM); Albumin 3.5 g/dL (3.5-5.0); Alkaline Phosphatase 296 U/L (38-126); Anion Gap 4 mmol/L; Blood Urea Nitrogen 5 mg/dL (9-20); Calcium 9.1 mg/dL (8.4-10.2); Carbon Dioxide 27 mmol/L (22-30); Chloride 105 mmol/L (98-107); Glucose 113 mg/dL (74-99); Magnesium 1.1 mg/dL (1.6-2.3); Non-African American GFR(CKD) >90 (>60 ml/min/1.73 sqM); Potassium 3.4 mmol/L (3.5-5.1); Sodium 136 mmol/L (137-145); Total Bilirubin 0.9 mg/dL (0.2-1.3); Total Protein 6.7 g/dL (6.3-8.2)
--- NOTE | 2024-03-31 14:29 | P.PN ---
Subjective Progress Note Date: 03/31/24 Hospital course: Patient is a 34-year-old male with no reported past medical history. He presented to the emergency department on 03/28/2024 with a chief complaint of altered mental status. Patient presented to the ER via EMS from [facility] where patient was reported to be found with altered mental status and was noted to be hallucinating and stomping on the ground trying to kill bugs and not making any sense. EMS was called secondary to concerns that patient was undergoing withdrawal and patient was transferred to the emergency department for evaluation. Vital signs upon arrival show blood pressure 127/73, heart rate 93, respiratory rate 16, temp 98.3 F, and SpO2 of 98% on room air. EKG was completed showing normal sinus rhythm at 65 bpm with no significant T wave or ST abnormalities showing no signs of acute ischemia upon personal review and interpretation. CT head negative for acute intracranial process. Labs completed and reviewed. CBC showing normocytic anemia with hemoglobin of 9.5. Coagulation profile revealing elevated INR of 1.2. Troponin 0.016. Ammonia 44. Magnesium 2.1. Lipase 135. Urine drug screen positive for marijuana and serum alcohol level less than 10. Creatinine kinase was elevated at 1390. Patient was admitted under our services at this time. Physical exam: Patient seen and fully evaluated at bedside. Virtual it technician was used throughout assessment (RingRang [id number]). Patient's mentation is improving. He remains alert to person and place and confused to time and situation. Patient reports he is in the hospital but is not able to state the year and states that he was brought to the hospital because he was walking down the street and seeing men that were not there so he was brought to the hospital for evaluation. Currently patient denies having any tactile, visual or auditory hallucinations. He admits to seeing and feeling bees and mosquitoes covering his body but states that was 3 days ago and denies seeing any more snakes in his room. Patient currently denies having any pain or complaints at this time. Vital signs reviewed and stable. General: Nontoxic, no distress and appears stated age. Derm: Skin warm and dry, normal coloration for ethnicity. Patient with bruises to bilateral knees and shins. Small abrasions lower extremities and left elbow. Head: Atraumatic, normocephalic and symmetric. Eyes: EOMs intact, no lid lag, and anicteric sclera Mouth: no lip lesions, mucus membranes moist Cardiovascular: regular rate and rhythm with normal S1S2, no murmur, positive posterior tibial pulses bilaterally, and cap refill < 2 seconds. Lungs: Respirations even, regular, and unlabored on room air. Lungs CTA bilater ally, no rhonchi, no rales, no wheezing, and no accessory muscle usage. Abdominal: soft, nontender to palpation, no guarding, no appreciable organomegaly Ext: ROM intact. No gross muscle atrophy, no edema, no contractures Neuro: Speech clear, face symmetrical and CN II-XII grossly intact with no noted focal neuro deficits Psych: Alert and oriented to person and place only, confused to time and si tuation. He denies having visual, auditory, or tactile hallucinations at this time. Assessment and Plan of Care: Hepatic encephalopathy with hyperammonemia Rhabdomyolysis, nontraumatic secondary to dehydration Elevated INR Hypokalemia Hypomagnesemia Transaminitis with hyperbilirubinemia, likely secondary to daily alcohol abuse and underlying alcoholic cirrhosis. Liver enzymes improving. Normocytic anemia likely secondary to chronic disease from underlying liver cirrhosis. -Continue monitoring of CIWA scores and patient to be medicated with Ativan 0.5 mg every 4 hours as needed for CIWA score of 4-5, Ativan 1 mg every 4 hours for CIWA score of 6-7, Ativan 2 mg every 3 hours CIWA score of 8-9, and Ativan 2 mg every 2 hours forr CIWA score of 10 or greater. Discussed with RN that software educator is necessary to use during CIWA scoring. -Will continue with gentle IV fluid hydration with 0.9% NS at 75 mL/hr. -Lactulose 20 g 3 times daily -Thiamine 100 mg daily, Multivitamin daily, and Folate 1 mg daily -Magnesium 1.1 orders placed for 4 g magnesium sulfate IVPB x 1 dose and Mag-Ox 400 mg p.o. x 1 dose. Will repeat with a.m. labs and continue to replace any electrolyte abnormalities as indicated based upon these findings. -Potassium 3.4. Orders placed for K-Dur 40 mill equivalents p.o. x 1 dose.Will repeat with a.m. labs and continue to replace any electrolyte abnormalities as indicated based upon these findings. -Seizure, fall, and elopement precautions remain in place. -Neurochecks every 4 hours. -Continued close monitoring of electrolytes and replace as needed. -Telemetry monitoring. -Hemoglobin remains stable at 8.8. Iron profile to be obtained. Hyponatremia. Resolved with IV fluid hydration. Data and imaging reviewed: -Morning labs reviewed. CBC showing stable normocytic anemia with hemoglobin of 8.8. BMP showing potassium 3.4 otherwise no significant abnormalities. Magnesium low at 1.1 this morning. Liver profile showing improvement of transaminitis with AST of 77, ALT of 57, and alkaline phosphatase of 296. -Vital signs reviewed. Blood pressure 145/82, heart rate 82, respiratory rate 17, temp 98.0 F, and SpO2 of 98% on room air. Virtual it technician was used throughout assessment (RingRang [id number]). CODE STATUS: Full code DVT prophylaxis: SCDs Anticipated discharge date: Pending clinical course Anticipated discharge place: Pending clinical course Patient was seen independently by Nurse Pracitioner. This document was prepared using [employer] dictation software. Please allow for errors in mower sharpener, while rare they do occur. Charles Law CONCESSIONIST rendered care for this patient independently, reviewed the findings and plan as documented in the note above. I did not physically speak with or examine the patient on this date. Objective - Vital Signs Vital signs: Vital Signs Temp 98.0 F 03/31/24 08:00 Pulse 82 03/31/24 08:00 Resp 17 03/31/24 08:00 BP 145/82 03/31/24 08:00 Pulse Ox 98 03/31/24 08:00 FiO2 Intake & Output 03/30/24 03/31/24 03/31/24 18:59 06:59 18:59 Intake Total 894 Balance 894 Weight 54.431 kg Intake: Oral 894 Other: # Voids 2 2 - Labs CBC & Chem 7: 04/01/24 08:52 04/01/24 08:52 Labs: Abnormal Lab Results - Last 24 Hours (Table) 03/30/24 Range/Units 03:21 Potassium 3.3 L (3.5-5.5) mmol/L BUN 7.8 L (9.0-27.0) mg/dL Calcium 8.6 L (8.7-10.3) mg/dL AST 114 H (14-35) U/L ALT 66 H (10-49) U/L Alkaline Phosphatase 337 H (41-126) U/L Albumin 3.6 L (3.8-4.9) g/dL Albumin/Globulin Ratio 1.29 L (1.60-3.17) Ratio
[2024-03-31] MEDS: POTASSIUM CHLORIDE ER 20 MEQ TAB.ER PO STA (16:02)
[2024-03-31] MEDS: MAGNESIUM OXIDE 400 MG TAB PO STA (16:02)
[2024-03-31] MEDS: MAGNESIUM SULFATE-D5W PMX 1 GM in DEXTROSE/WATER 1 100ML.BAG IVPB SCH (16:03)
[2024-04-01 09:15] LABS: Anisocytosis Slight; HCT 28.2 % (39.0-53.0); HGB 8.4 gm/dL (13.0-17.5); Hypochromasia Slight; MCH 25.6 pg (25.0-35.0); MCHC 29.9 g/dL (31.0-37.0); MCV 85.4 fL (80.0-100.0); Mean Platelet Volume 8.2; Platelet Count 211 k/uL (150-450); RDW 18.2 % (11.5-15.5); WBC 9.4 k/uL (3.8-10.6)
[2024-04-01 09:31] LABS: ALT 53 U/L (4-49); AST 66 U/L (17-59); African American GFR (CKD) >90 (>60 ml/min/1.73 sqM); Albumin 3.5 g/dL (3.5-5.0); Alkaline Phosphatase 299 U/L (38-126); Anion Gap 7 mmol/L; Blood Urea Nitrogen 4 mg/dL (9-20); Calcium 9.3 mg/dL (8.4-10.2); Carbon Dioxide 26 mmol/L (22-30); Chloride 103 mmol/L (98-107); Glucose 112 mg/dL (74-99); Magnesium 1.3 mg/dL (1.6-2.3); Non-African American GFR(CKD) >90 (>60 ml/min/1.73 sqM); Potassium 3.8 mmol/L (3.5-5.1); Sodium 136 mmol/L (137-145); Total Bilirubin 0.9 mg/dL (0.2-1.3); Total Protein 6.9 g/dL (6.3-8.2)
--- NOTE | 2024-04-01 11:10 | P.DS ---
Providers Date of admission: 03/28/24 16:34 Expected date of discharge: 04/01/24 Attending physician: Reid Salazar MD Primary care physician: Stated None Hospital Course: Hepatic encephalopathy with hyperammonemia Rhabdomyolysis, nontraumatic secondary to dehydration Elevated INR Hypokalemia Hypomagnesemia Transaminitis with hyperbilirubinemia, likely secondary to daily alcohol abuse and underlying alcoholic cirrhosis. Liver enzymes improving. Normocytic anemia likely secondary to chronic disease from underlying liver cirrhosis. Hyponatremia. Hospital course: Patient is a 34-year-old male with no reported past medical history. He presented to the emergency department on 03/28/2024 with a chief complaint of altered mental status. Patient presented to the ER via EMS from [facility] where patient was reported to be found with altered mental status and was noted to be hallucinating and stomping on the ground trying to kill bugs and not making any sense. EMS was called secondary to concerns that patient was undergoing withdrawal and patient was transferred to the emergency department for evaluation. Vital signs upon arrival show blood pressure 127/73, heart rate 93, respiratory rate 16, temp 98.3 F, and SpO2 of 98% on room air. EKG was completed showing normal sinus rhythm at 65 bpm with no significant T wave or ST abnormalities showing no signs of acute ischemia upon personal review and interpretation. CT head negative for acute intracranial process. Labs completed and reviewed. CBC showing normocytic anemia with hemoglobin of 9.5. Coagulation profile revealing elevated INR of 1.2. Troponin 0.016. Ammonia 44. Magnesium 2.1. Lipase 135. Urine drug screen positive for marijuana and serum alcohol level less than 10. Creatinine kinase was elevated at 1390. Patient was admitted under our services at this time. Pt was treated for hepatic encephalopathy with lactulose and his encephalopathy improved back to baseline. He was discharged home with lactulose, thiamine, mvi, folic acid. He was provided resources for AA and PCP referral. I spent 34 minutes coordinating this discharge Physical exam: Gen: In NAD, non-toxic HEENT: normocephalic, atraumatic, hearing acuity is intant, mucous membranes moist CVS: perfusing all extremities well, no pitting edema, Respiratory: symmetric chest expansion, no accessory muscle use, GI: soft, NTTP, ND, : no suprapubic tenderness, no CVA tenderness MSK/Derm: no rashes, cyanosis Neuro: CN II-XII intact, no motor weakness, Psych: cooperative, euthymic mood, judgment and insight is intact Patient Condition at Discharge: Good Plan - Discharge Summary Discharge Rx Participant: No New Discharge Prescriptions: New Lactulose [Cephulac] 20 gm PO TID #1000 ml Multivitamins, Thera [Multivitamin (formulary)] 1 each PO DAILY #30 tab Thiamine [Vitamin B-1] 100 mg PO DAILY #30 tab Folic Acid 1 mg PO DAILY #30 tab Discharge Medication List Folic Acid 1 mg PO DAILY #30 tab 04/01/24 [Rx] Lactulose [Cephulac] 20 gm PO TID #1000 ml 04/01/24 [Rx] Multivitamins, Thera [Multivitamin (formulary)] 1 each PO DAILY #30 tab 04/01/24 [Rx] Thiamine [Vitamin B-1] 100 mg PO DAILY #30 tab 04/01/24 [Rx] Follow up Appointment(s)/Referral(s): Ling Shaw III, MD [STAFF PHYSICIAN] - 1 Week Laquita Lombardi MD [STAFF PHYSICIAN] - 1 Week Patient Instructions/Handouts: Hepatic Encephalopathy (DC), Abuse of Alcohol (DC), Alcohol Withdrawal (DC) Discharge/Stand Alone Forms: AA Meetings Dist & 24 - [facility], AA Meetings [facility], Who Do I Call?, Community Resources, Outpatient Counseling, Inp Substance Abuse Facilities, Outpatient Therapy List Discharge Disposition: HOME SELF-CARE
[2024-04-01 14:53] VITALS: BP 145/95; PULSE 77; RESP 15; TEMP 98.8
[2024-04-01 15:29] LABS: % Iron Saturation 6.38 (15.00-50.00); Iron 27 UG/DL (65-175); Total Iron Binding Capacity 423 UG/DL (228-460)
== END 2024-04-01 16:07 | disposition home or self-care (01) | DRG 441 ==
LOC: EC 12:11 → 5NMEDONC 16:34 → OBSVTOIN 16:34 → 5NMEDONC 18:02 → 1SOBS 03-30 06:28
PROVIDERS: ADMIT Student in an Organized Health Care Education/Training Program; ATTEND Student in an Organized Health Care Education/Training Program
DX: K76.82 Hepatic encephalopathy (principal); G93.41 Metabolic encephalopathy; E72.20 Disorder of urea cycle metabolism, unspecified; M62.82 Rhabdomyolysis; F05 Delirium due to known physiological condition; E87.1 Hypo-osmolality and hyponatremia; F10.132 Alcohol abuse with withdrawal with perceptual disturbance; L98.491 Non-pressure chronic ulcer of skin of other sites limited to breakdown of skin; K70.30 Alcoholic cirrhosis of liver without ascites; D63.8 Anemia in other chronic diseases classified elsewhere; E83.42 Hypomagnesemia; E87.6 Hypokalemia; S80.02XA Contusion of left knee, initial encounter; S80.01XA Contusion of right knee, initial encounter; S80.212A Abrasion, left knee, initial encounter; S80.211A Abrasion, right knee, initial encounter; S50.312A Abrasion of left elbow, initial encounter; E80.6 Other disorders of bilirubin metabolism; E86.0 Dehydration; Y90.0 Blood alcohol level of less than 20 mg/100 ml; Y00.XXXA Assault by blunt object, initial encounter; Z60.3 Acculturation difficulty; Y92.828 Other wilderness area as the place of occurrence of the external cause; Z87.19 Personal history of other diseases of the digestive system
CPT/HCPCS: 36415; 70450; 80048; 80053; 80306; 80320; 82140; 82550; 83540; 83550; 83605; 83690; 83735; 84100; 84484; 85025; 85027; 85610; 85730; 93005; 96361; 96365; 96366; 96372; 99285